=== PATIENT | male | born 1995 | race American Indian/Alaskan Native ===

== ENCOUNTER 2018-03-06 13:45 | Emergency (ER) | payer SELFPAY ==
[2018-03-06] MEDS ORDERED: methylPREDNISolone Sodium Succinate 125 MG/2 ML SDV IM ONE (14:19)
--- NOTE | 2018-03-06 14:33 | EDM.PDOC ---
ED HPI GENERAL MEDICAL PROBLEM - General Chief Complaint: Skin Complaint Stated Complaint: RASH Time Seen by Provider: 03/06/18 14:13 Source of Information: Reports: Patient History Limitations: Reports: No Limitations - History of Present Illness INITIAL COMMENTS - FREE TEXT/NARRATIVE: Poison Vida rash for the past 2 days, started on the right arm, now has spread to abdomen, whole right arm, face, right side of neck. very, very itchy and uncomfortable. has tried OTC medication without success. Onset: Sudden Onset Date: 03/04/18 Duration: Day(s): (2), Getting Worse Location: Reports: Face, Neck, Abdomen, Upper Extremity, Right Quality: Reports: Burning (itch) Severity: Severe Improves with: Reports: None Worsens with: Reports: None Context: Reports: Other (Poison Vida contact) - Related Data Allergies Allergy/AdvReac Type Severity Reaction Status Date / Time No Known Allergies Allergy Verified 03/06/18 13:58 Home Meds: Home Meds NK [No Known Home Meds] 03/06/18 [History] Past Medical History Hematologic History: Reports: Blood Transfusion(s) - Past Surgical History Head Surgeries/Procedures: Reports: None Dermatological Surgical History: Reports: None Social & Family History - Tobacco Use Smoking Status *Q: Current Every Day Smoker Years of Tobacco use: 6 Packs/Tins Daily: 0.5 Used Tobacco, but Quit: No Second Hand Smoke Exposure: No - Caffeine Use Caffeine Use: Reports: Coffee, Energy Drinks, Soda, Tea - Recreational Drug Use Recreational Drug Use: No - Living Situation & Occupation Living situation: Reports: with Family (has one year old child at home) ED ROS GENERAL - Review of Systems Review Of Systems: See Below Constitutional: Reports: Other (uncomfortable due to rash) HEENT: Reports: No Symptoms Respiratory: Reports: No Symptoms Cardiovascular: Reports: No Symptoms Endocrine: Reports: No Symptoms GI/Abdominal: Reports: No Symptoms : Reports: No Symptoms (denies or breast feeding) Musculoskeletal: Reports: Arm Pain (secondary to advance poison vida rash) Skin: Reports: Pruritis, Rash Neurological: Reports: No Symptoms Psychiatric: Reports: No Symptoms Hematologic/Lymphatic: Reports: No Symptoms Immunologic: Reports: No Symptoms ED EXAM, SKIN/RASH Exam: See Below Exam Limited By: No Limitations General Appearance: Alert, WD/WN, Mild Distress Eye Exam: Bilateral Eye: Normal Inspection Nose: Normal Inspection, Normal Mucosa, No Blood Throat/Mouth: Normal Inspection, Normal Lips, Normal Teeth, Normal Gums, Normal Oropharynx, Normal Voice, No Airway Compromise Head: Facial Swelling, Other (right side of face with poison vida rash, facial swelling, redness, tiny pustles weeping clear to serous discharge. pruritis present.) Neck: Supple, Non-Tender, Other (poison vida rash noted to right side of neck extending to posterior neck) Respiratory/Chest: No Respiratory Distress, Lungs Clear, Normal Breath Sounds, No Accessory Muscle Use, Chest Non-Tender Cardiovascular: Normal Peripheral Pulses, Regular Rate, Rhythm, No Edema, No Gallop, No JVD, No Murmur, No Rub GI/Abdominal: Soft, Non-Tender, Other (poison vida rash noted to right side of abdomen extending into groin) Back Exam: Normal Inspection, Full Range of Motion, NT Extremities: Arm Pain (rash from finger to upper arm. red, raised pustles, weeping, warm to touch, pruritis) Neurological: No Motor/Sensory Deficits Psychiatric: Normal Affect, Normal Mood Skin: Warm, Rash Location, Skin: Face, Neck, Abdomen, Upper Extremity, Right, Groin Characteristics: Fine, Patchy, Vesicular, Erythematous Associated features: Warmth, Tenderness (pruritis), Swelling, Weeping Lymphatic: No Adenopathy Course - Vital Signs Last Recorded V/S: Last Vital Signs Temp 36.6 C 03/06/18 14:03 Pulse 111 H 03/06/18 14:03 Resp 10 L 03/06/18 14:03 BP 120/81 03/06/18 14:03 Pulse Ox 98 03/06/18 14:03 - Orders/Labs/Meds Orders: given Solumedrol 125mg IM, will discharge to home with Medrol dose pack and vistaril for pruritus. agrees with plan of care. Meds: Medications Discontinued Medications Generic Name Dose Route Start Last Admin Trade Name Freq PRN Reason Stop Dose Admin Methylprednisolone Sodium Succinate 125 mg 03/06/18 14:19 03/06/18 14:23 Solu-Medrol IM 03/06/18 14:20 125 mg ONETIME ONE Administration Departure - Departure Time of Disposition: 14:30 Disposition: Home, Self-Care 01 Condition: Good Clinical Impression: Contact dermatitis due to poison vida - Discharge Information *PRESCRIPTION DRUG MONITORING PROGRAM REVIEWED*: Not Applicable Instructions: Poison Vida Dermatitis, [id number] Referrals: PCP,None [Primary Care Provider] - Forms: ED Department Discharge Care Plan Goals: Poison Vida -given Solumedrol 125mg im in ER -home medication Medrol dose pack as directed -home Vistaril 25mg one every 4 to 6 hours as needed for itch #30 -follow Poison Vida discharge instructions -return to ER for any signs of infection, redness, increase swelling, fever, chills, nausea, vomiting or not improving in next 24 hours follow up with Primary Care Provider of recheck in 3 to 5 days if has any concerns. - Problem List & Annotations (1) Contact dermatitis due to poison vida SNOMED Code(s): 136275924 Code(s): L23.7 - ALLERGIC CONTACT DERMATITIS DUE TO PLANTS, EXCEPT FOOD Status: Acute Priority: High Current Visit: Yes - Problem List Review Problem List Initiated/Reviewed/Updated: Yes - Assessment/Plan Plan: Poison Vida -given Solumedrol 125mg im in ER -home medication Medrol dose pack as directed -home Vistaril 25mg one every 4 to 6 hours as needed for itch #30 -follow Poison Vida discharge instructions -return to ER for any signs of infection, redness, increase swelling, fever, chills, nausea, vomiting or not improving in next 24 hours follow up with Primary Care Provider of recheck in 3 to 5 days if has any concerns.
== END 2018-03-06 14:37 | disposition home or self-care (01) ==
LOC: JP.ED 13:45
DX: L23.7 Allergic contact dermatitis due to plants, except food (principal); F17.210 Nicotine dependence, cigarettes, uncomplicated
CPT/HCPCS: 96372; 99283; J2930

== ENCOUNTER 2018-10-31 22:22 | Emergency (ER) | payer MEDICAID ==
--- NOTE | 2018-10-31 22:59 | EDM.PDOC ---
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 She did deliver about 1 week ago. Onset: Other (bleeding betty) Duration: Hour(s): Associated Symptoms: Reports: Other (pt is cramping some. 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: Psychiatric History: Reports: Depression, Psych Hospitalization(s), Suicide Attempt, Suicidal Ideation Endocrine/Metabolic History: Reports: Obesity/BMI 30+ Hematologic History: Reports: Blood Transfusion(s) - Infectious Disease History Infectious Disease History: Reports: Chicken Pox - Past Surgical History Head Surgeries/Procedures: Reports: None Dermatological Surgical History: Reports: None Social & Family History - Tobacco Use Smoking Status *Q: Light Tobacco Smoker Years of Tobacco use: 5 Packs/Tins Daily: 0.1 - Caffeine Use Caffeine Use: Reports: Coffee - Recreational Drug Use Recreational Drug Use: Yes Drug Use in Last 12 Months: Yes Recreational Drug Type: Reports: Marijuana/Hashish Recreational Drug Use Frequency: Monthly - Living Situation & Occupation Living situation: Reports: with Family (has one year old child at home) ED ROS GENERAL - Review of Systems Review Of Systems: See Below Constitutional: Reports: No Symptoms HEENT: Reports: No Symptoms Respiratory: Reports: No Symptoms Cardiovascular: Reports: No Symptoms Endocrine: Reports: No Symptoms GI/Abdominal: Reports: No Symptoms : Reports: Other (increased vag bleeding. ) Skin: Reports: No Symptoms Neurological: Reports: No Symptoms ED EXAM - Physical Exam Exam: See Below Text/Narrative:: Pt arrived with a history of some increase in vag bleeding. She delivered 1 week ago. Exam Limited By: No Limitations General Appearance: Alert, Mild Distress Ears: Normal TMs Nose: Normal Inspection Throat/Mouth: Normal Inspection Head: Atraumatic Neck: Normal Inspection (Female) Exam: Other (pelvic exam revealed small to moderate bleeding. No clots present. Pt did not appear to be excessively tender. discharge was not foul. ) Back Exam: Normal Inspection Extremities: Normal Inspection Neurological: Alert, Oriented, Normal Cognition Psychiatric: Normal Affect Course - Vital Signs Last Recorded V/S: Last Vital Signs Temp 35.9 C 10/31/18 22:50 Pulse 81 10/31/18 22:50 Resp 16 10/31/18 22:50 BP 136/62 10/31/18 22:50 Pulse Ox 99 10/31/18 22:50 - Orders/Labs/Meds Labs: Laboratory Tests 10/31/18 Range/Units 23:14 WBC 13.0 H (4.5-11.0) K/uL RBC 4.30 (3.30-5.50) M/uL Hgb 9.4 L (12.0-15.0) g/dL Hct 32.3 L (36.0-48.0) % MCV 75 L (80-98) fL MCH 22 L (27-31) pg MCHC 29 L (32-36) % Plt Count 517 H (150-400) K/uL Neut % (Auto) 64 (36-66) % Lymph % (Auto) 23 L (24-44) % [place] % (Auto) 10 H (2-6) % Eos % (Auto) 3 (2-4) % Baso % (Auto) 1 (0-1) % Departure - Departure Time of Disposition: 23:34 Disposition: Home, Self-Care 01 Condition: Fair Clinical Impression: bleeding - Discharge Information Referrals: Lilliam Isaac CNM [Primary Care Provider] - Forms: ED Department Discharge Care Plan Goals: decrease activity for the next few days. use vitamins or vitamins high in iron.
== END 2018-10-31 23:45 | disposition home or self-care (01) ==
LOC: JP.ED 22:22
DX: O72.1 Other immediate postpartum hemorrhage (principal); O10.93 Unspecified pre-existing hypertension complicating the puerperium; F17.219 Nicotine dependence, cigarettes, with unspecified nicotine-induced disorders
CPT/HCPCS: 36415; 85025; 99283